=== PATIENT | female | born 1965 | race Caucasian/White ===

== ENCOUNTER 2017-12-05 12:03 | Inpatient (IN) | payer MEDICAID, OTHER ==
[2017-12-05 15:46] LABS: ADD MAN DIFF? NO
[2017-12-05 15:52] LABS: ABNORMAL IP MESSAGE 1; BASOPHILS % 0.2 % (0.0-2.0); EOSINOPHILS % 0.1 % (0.0-7.0); HEMATOCRIT 35.6 % (37.0-47.0); HEMOGLOBIN 10.6 g/dl (12.0-16.0); LYMPHOCYTES # 2.1 10^3/ul (0.8-2.9); LYMPHOCYTES % 10.5 % (15.0-51.0); MEAN CORPUSCULAR HEMOGLOBIN 20.1 pg (29.0-33.0); MEAN CORPUSCULAR HGB CONC 29.8 g/dl (32.0-37.0); MEAN CORPUSCULAR VOLUME 67.4 fl (82.0-101.0); MEAN PLATELET VOLUME 9.8 fl (7.4-10.4); MONOCYTE # 1.7 10^3/ul (0.3-0.9); MONOCYTES % 8.5 % (0.0-11.0); NEUTROPHILS % 80.1 % (39.0-77.0); PLATELET COUNT 325 10^3/UL (140-415); RED BLOOD COUNT 5.28 10^6/ul (4.20-5.40); RED CELL DISTRIBUTION WIDTH 15.3 % (11.5-14.5)
[2017-12-05 15:54] LABS: POSITIVE DIFF @See below
[2017-12-05 16:09] LABS: ADD UMIC YES; UR ASCORBIC ACID NEGATIVE (NEGATIVE); UR BACTERIA FEW /HPF (NONE SEEN); UR BILIRUBIN (Dip) NEGATIVE (NEGATIVE); UR BLOOD (Dip) NEGATIVE (NEGATIVE); UR CLARITY SLIGHTLY CLOUDY (CLEAR); UR COLOR AMBER (YELLOW); UR GLUCOSE (Dip) NEGATIVE (NEGATIVE); UR KETONES (Dip) NEGATIVE (NEGATIVE); UR LEUKOCYTE ESTERASE (Dip) TRACE Leu/ul (NEGATIVE); UR MUCUS MANY /HPF (NONE SEEN); UR NITRITE (Dip) NEGATIVE (NEGATIVE); UR RBC 3 /HPF (0-5); UR SPECIFIC GRAVITY (Dip) 1.025 (1.003-1.030); UR SQUAMOUS EPITHELIAL CELL FEW /HPF (FEW); UR TOTAL PROTEIN (Dip) 1+ mg/dl (NEGATIVE); UR UROBILINOGEN (Dip) NEGATIVE (NEGATIVE); UR WBC 8 /HPF (0-5)
[2017-12-05 16:11] LABS: INR 1.18; PROTIME 15.2 Sec (11.9-14.9); PT RATIO 1.2
[2017-12-05 16:12] LABS: PARTIAL THROMBOPLASTIN TIME 36.6 Sec (25.0-35.0)
[2017-12-05 16:13] LABS: ALANINE AMINOTRANSFERASE 20 IU/L (13-69); ALBUMIN 3.4 g/dl (3.3-4.9); ALKALINE PHOSPHATASE 78 IU/L (42-121); AMYLASE < 30 U/L (11-123); ANION GAP 15 (8-16); ASPARTATE AMINO TRANSFERASE 16 IU/L (15-46); BILIRUBIN,INDIRECT 0.8 mg/dl (0-1.1); BILIRUBIN,TOTAL 0.8 mg/dl (0.2-1.3); BLOOD UREA NITROGEN 20 mg/dl (7-20); CALCIUM 8.3 mg/dl (8.4-10.2); CARBON DIOXIDE 31 mmol/L (21-31); CHLORIDE 97 mmol/L (97-110); CREATININE 0.85 mg/dl (0.44-1.00); GLUCOSE 109 mg/dl (70-220); LIPASE < 10 U/L (23-300); POTASSIUM 3.7 mmol/L (3.5-5.1); SODIUM 139 mmol/L (135-144); TOTAL PROTEIN 6.8 g/dl (6.1-8.1)
[2017-12-05] MEDS: SOD CHLORIDE 0.9% 1,000 ML IV ×2 (16:17→21:05)
[2017-12-05] MEDS: morphine 4 MG/ML VIAL IV (16:17)
[2017-12-05] MEDS: ONDANSETRON 4 MG INJ IV ×2 (16:17→17:25)
[2017-12-05 16:24] LABS: TROPONIN-I < 0.012 ng/ml (0.000-0.120)
[2017-12-05] MEDS: HYDROmorphONE 1 MG/ML SYG IV (17:25)
[2017-12-05] MEDS: CEFTRIAXONE 1 GM/50 ML (PMX) 50 ML IVPB (17:26)
[2017-12-05] MEDS: metroNIDAZOLE 500 MG/NS (PMX) 100 ML IVPB (18:50)
[2017-12-05] MEDS: CIPROFLOXACIN 400MG/D5W 200 ML IVPB (18:50)
[2017-12-05] MEDS ORDERED: ONDANSETRON 4 MG INJ IV ×2 (19:00→20:00)
[2017-12-05] MEDS ORDERED: NACL 0.9% 3 ML SYG IV (20:00)
[2017-12-05] MEDS ORDERED: NA PHOSPHATE/BIPHOS 133 ML ENEMA PR (20:00)
[2017-12-05] MEDS ORDERED: NITROGLYCERIN (SL) 0.4 MG TAB SL (20:00)
[2017-12-05] MEDS ORDERED: MAGNESIUM HYDROXIDE 30ML CUP PO (20:00)
[2017-12-05] MEDS ORDERED: ALBUTEROL/IPRATROPIUM (NEB) 3 ML AMP HHN (20:00)
[2017-12-05] MEDS: morphine 2 MG INJ IV ×2 (20:02→23:18)
[2017-12-05] MEDS: ACETAMINOPHEN 325 MG TAB PO (20:09)
[2017-12-05 20:27] LABS: FREE T4 (FREE THYROXINE) 1.48 ng/dl (0.64-1.79)
[2017-12-05] MEDS: HEPARIN 5,000 UNIT/0.5 ML VIAL SC (21:46)
[2017-12-05] MEDS ORDERED: GLUCAGON 1 MG INJ IM (22:30)
[2017-12-05] MEDS ORDERED: DEXTROSE 50% 50 ML SYRINGE IV (22:30)
[2017-12-05] MEDS ORDERED: GLUCOSE GEL 15 GRAM TUBE PO ×2 (22:30)
[2017-12-05 23:19] LABS: LACTIC ACID 1.2 mmol/L (0.5-2.0)
[2017-12-05] MEDS: PIPER-TAZO 3.375 GM IV (PMX) 100 ML IVPB (23:21)
[2017-12-06 00:55] LABS: LACTIC ACID 0.9 mmol/L (0.5-2.0)
[2017-12-06] MEDS: INSULIN ASPART [NOVOLOG] 3 ML PEN SC ×6 (01:00→21:00)
[2017-12-06] MEDS: ACCU-CHEK XX (01:41)
[2017-12-06 04:08] LABS: ADD MAN DIFF? NO
[2017-12-06 04:11] LABS: ABNORMAL IP MESSAGE 1; BASOPHILS % 0.2 % (0.0-2.0); EOSINOPHILS # 0.1 10^3/ul (0.0-0.5); EOSINOPHILS % 0.3 % (0.0-7.0); HEMATOCRIT 33.8 % (37.0-47.0); HEMOGLOBIN 10.2 g/dl (12.0-16.0); LYMPHOCYTES # 1.2 10^3/ul (0.8-2.9); MEAN CORPUSCULAR HEMOGLOBIN 20.8 pg (29.0-33.0); MEAN CORPUSCULAR HGB CONC 30.2 g/dl (32.0-37.0); MEAN PLATELET VOLUME 9.8 fl (7.4-10.4); MONOCYTE # 1.7 10^3/ul (0.3-0.9); MONOCYTES % 8.6 % (0.0-11.0); NEUTROPHIL # 16.8 10^3/ul (1.6-7.5); NEUTROPHILS % 84.4 % (39.0-77.0); PLATELET COUNT 290 10^3/UL (140-415); RED CELL DISTRIBUTION WIDTH 15.6 % (11.5-14.5)
[2017-12-06 04:11] LABS: WHITE BLOOD COUNT 19.9 10^3/ul (4.8-10.8)
[2017-12-06 04:15] LABS: POSITIVE DIFF @See below
[2017-12-06 04:29] LABS: CHOLESTEROL 64 mg/dl (100-200)
[2017-12-06 04:29] LABS: CHOL/HDL RATIO 3.3 RATIO; HDL CHOLESTEROL 19 mg/dl (37-92); LDL CHOLESTEROL,CALCULATED 19 mg/dl; TRIGLYCERIDES 129 mg/dl (0-149)
[2017-12-06 04:35] LABS: ANION GAP 11 (8-16); BLOOD UREA NITROGEN 22 mg/dl (7-20); CALCIUM 7.4 mg/dl (8.4-10.2); CARBON DIOXIDE 29 mmol/L (21-31); CHLORIDE 102 mmol/L (97-110); CREATININE 0.88 mg/dl (0.44-1.00); GLUCOSE 122 mg/dl (70-220); MAGNESIUM 1.7 mg/dl (1.7-2.5); PHOSPHORUS 4.8 mg/dl (2.5-4.9); POTASSIUM 3.7 mmol/L (3.5-5.1); SODIUM 138 mmol/L (135-144)
[2017-12-06 04:36] LABS: HEMOGLOBIN A1C 7.9 % (0-5.9)
[2017-12-06] MEDS: PANTOPRAZOLE 40 MG INJ IV (05:20)
[2017-12-06] MEDS: PIPER-TAZO 3.375 GM IV (PMX) 100 ML IVPB ×3 (05:20→18:29)
[2017-12-06] MEDS: morphine 2 MG INJ IV (07:23)
[2017-12-06 07:59] LABS: IRON 24 ug/dl (35-150)
[2017-12-06] MEDS: ACETAMINOPHEN 325 MG TAB PO ×2 (08:00→17:54)
[2017-12-06 08:03] LABS: LACTIC ACID 0.8 mmol/L (0.5-2.0)
[2017-12-06] MEDS: SOD CHLORIDE 0.9% 1,000 ML IV ×2 (08:04→18:30)
[2017-12-06 08:08] LABS: % IRON SATURATION 10 % SAT (22-52); TOTAL IRON BINDING CAPACITY 234 ug/dl (241-421)
[2017-12-06] MEDS: HEPARIN 5,000 UNIT/0.5 ML VIAL SC ×2 (09:12→21:08)
[2017-12-06] MEDS: HYDROCODONE/APAP (5/325) TAB PO (12:34)
[2017-12-06 12:49] LABS: LACTIC ACID 1.2 mmol/L (0.5-2.0)
[2017-12-06] MEDS: SOD FERRIC GLUC COMPLX 125 MG in SOD CHLORIDE 0.9% 100 ML IVPB (17:13)
[2017-12-06 17:15] LABS: LACTIC ACID 0.7 mmol/L (0.5-2.0)
[2017-12-06] MEDS: SOD CHLORIDE 0.9% 500 ML IV (19:06)
[2017-12-06] MEDS: DILTIAZEM 30 MG TAB PO (21:04)
[2017-12-06] MEDS: ATORVASTATIN 40 MG TAB PO (21:04)
[2017-12-06] MEDS: METOPROLOL (XL) 100 MG TAB PO (21:04)
[2017-12-06] MEDS: INSULIN GLARGINE [LANTus] (100 UNITS/ML) SYG SC (21:06)
[2017-12-07] MEDS: SOD CHLORIDE 0.9% 500 ML IV (00:10)
[2017-12-07] MEDS: INSULIN ASPART [NOVOLOG] 3 ML PEN SC ×6 (01:00→21:00)
[2017-12-07] MEDS: ACCU-CHEK XX (01:33)
[2017-12-07] MEDS: PIPER-TAZO 3.375 GM IV (PMX) 100 ML IVPB ×4 (01:37→17:19)
[2017-12-07] MEDS: ACETAMINOPHEN 1000MG/100ML IV 100 ML IVPB (03:37)
[2017-12-07] MEDS: morphine 2 MG INJ IV ×3 (03:57→22:20)
[2017-12-07] MEDS: SOD CHLORIDE 0.9% 1,000 ML IV ×2 (04:00→11:33)
[2017-12-07 06:39] LABS: ADD MAN DIFF? NO
[2017-12-07 06:42] LABS: WHITE BLOOD COUNT 18.6 10^3/ul (4.8-10.8)
[2017-12-07 06:42] LABS: BASOPHILS % 0.2 % (0.0-2.0); EOSINOPHILS % 0.1 % (0.0-7.0); HEMATOCRIT 32.7 % (37.0-47.0); HEMOGLOBIN 9.7 g/dl (12.0-16.0); LYMPHOCYTES # 1.4 10^3/ul (0.8-2.9); LYMPHOCYTES % 7.3 % (15.0-51.0); MEAN CORPUSCULAR HEMOGLOBIN 20.6 pg (29.0-33.0); MEAN CORPUSCULAR HGB CONC 29.7 g/dl (32.0-37.0); MEAN CORPUSCULAR VOLUME 69.3 fl (82.0-101.0); MONOCYTE # 1.3 10^3/ul (0.3-0.9); MONOCYTES % 7.2 % (0.0-11.0); NEUTROPHIL # 15.7 10^3/ul (1.6-7.5); NEUTROPHILS % 84.6 % (39.0-77.0); PLATELET COUNT 313 10^3/UL (140-415); RED BLOOD COUNT 4.72 10^6/ul (4.20-5.40); RED CELL DISTRIBUTION WIDTH 15.8 % (11.5-14.5)
[2017-12-07] MEDS: PANTOPRAZOLE 40 MG INJ IV (06:51)
[2017-12-07 07:23] LABS: ANION GAP 15 (8-16); BLOOD UREA NITROGEN 23 mg/dl (7-20); CALCIUM 7.7 mg/dl (8.4-10.2); CARBON DIOXIDE 27 mmol/L (21-31); CHLORIDE 104 mmol/L (97-110); CREATININE 0.92 mg/dl (0.44-1.00); GLUCOSE 130 mg/dl (70-220); POTASSIUM 3.5 mmol/L (3.5-5.1); SODIUM 142 mmol/L (135-144)
[2017-12-07] MEDS: BARIUM SULF 2% 450 ML BTL (BERRY SMOOTHIE) PO (08:08)
[2017-12-07] MEDS: SOD CHLORIDE 0.9% 100 ML (10:47)
[2017-12-07] MEDS: ASPIRIN (EC) 81 MG TAB PO (11:31)
[2017-12-07] MEDS: METOPROLOL (XL) 100 MG TAB PO ×2 (11:31→21:07)
[2017-12-07] MEDS: HYDROCHLOROTHIAZIDE 25 MG TAB PO (11:32)
[2017-12-07] MEDS: DILTIAZEM 30 MG TAB PO ×2 (11:33→21:07)
[2017-12-07] MEDS: IOHEXOL 300MG/ML 150 ML BTL (11:33)
[2017-12-07] MEDS: HEPARIN 5,000 UNIT/0.5 ML VIAL SC ×2 (11:36→21:10)
[2017-12-07] MEDS ORDERED: IBUPROFEN 600 MG TAB GTB (12:30)
[2017-12-07 14:10] LABS: OCCULT BLOOD STOOL NEGATIVE (NEGATIVE)
[2017-12-07] MEDS: SOD FERRIC GLUC COMPLX 125 MG in SOD CHLORIDE 0.9% 100 ML IVPB (17:18)
[2017-12-07] MEDS: LEVOFLOXACIN 500MG/D5W (PMX) 100 ML IVPB (21:05)
[2017-12-07] MEDS: ATORVASTATIN 40 MG TAB PO (21:07)
[2017-12-07] MEDS: INSULIN GLARGINE [LANTus] (100 UNITS/ML) SYG SC (21:14)
[2017-12-07] MEDS: ACETAMINOPHEN 325 MG TAB PO (21:19)
[2017-12-07] MEDS: metroNIDAZOLE 500 MG/NS (PMX) 100 ML IVPB (22:15)
[2017-12-08] MEDS: PIPER-TAZO 3.375 GM IV (PMX) 100 ML IVPB ×4 (00:18→17:05)
[2017-12-08] MEDS: INSULIN ASPART [NOVOLOG] 3 ML PEN SC ×6 (01:00→21:00)
[2017-12-08] MEDS: ACCU-CHEK XX (01:24)
[2017-12-08] MEDS: HYDROCODONE/APAP (5/325) TAB PO ×2 (01:28→20:27)
[2017-12-08] MEDS: SOD CHLORIDE 0.9% 1,000 ML IV ×2 (04:08→08:54)
[2017-12-08] MEDS: PANTOPRAZOLE 40 MG INJ IV (05:15)
[2017-12-08] MEDS: metroNIDAZOLE 500 MG/NS (PMX) 100 ML IVPB ×3 (05:52→21:46)
[2017-12-08] MEDS: morphine 2 MG INJ IV ×4 (05:56→22:42)
[2017-12-08 06:45] LABS: ADD MAN DIFF? NO
[2017-12-08 06:58] LABS: BASOPHILS % 0.2 % (0.0-2.0); EOSINOPHILS # 0.1 10^3/ul (0.0-0.5); EOSINOPHILS % 0.8 % (0.0-7.0); HEMATOCRIT 34.7 % (37.0-47.0); HEMOGLOBIN 10.1 g/dl (12.0-16.0); LYMPHOCYTES # 1.2 10^3/ul (0.8-2.9); LYMPHOCYTES % 6.8 % (15.0-51.0); MEAN CORPUSCULAR HEMOGLOBIN 20.3 pg (29.0-33.0); MEAN CORPUSCULAR HGB CONC 29.1 g/dl (32.0-37.0); MEAN CORPUSCULAR VOLUME 69.8 fl (82.0-101.0); MEAN PLATELET VOLUME 10.2 fl (7.4-10.4); MONOCYTE # 1.4 10^3/ul (0.3-0.9); MONOCYTES % 7.9 % (0.0-11.0); NEUTROPHIL # 14.8 10^3/ul (1.6-7.5); NEUTROPHILS % 83.7 % (39.0-77.0); PLATELET COUNT 365 10^3/UL (140-415); RED BLOOD COUNT 4.97 10^6/ul (4.20-5.40); RED CELL DISTRIBUTION WIDTH 15.9 % (11.5-14.5)
[2017-12-08 06:58] LABS: WHITE BLOOD COUNT 17.6 10^3/ul (4.8-10.8)
[2017-12-08 07:26] LABS: ANION GAP 13 (8-16); BLOOD UREA NITROGEN 19 mg/dl (7-20); CARBON DIOXIDE 30 mmol/L (21-31); CHLORIDE 103 mmol/L (97-110); CREATININE 0.74 mg/dl (0.44-1.00); GLUCOSE 80 mg/dl (70-220); POTASSIUM 3.5 mmol/L (3.5-5.1); SODIUM 142 mmol/L (135-144)
[2017-12-08] MEDS: DILTIAZEM 30 MG TAB PO ×2 (08:48→20:26)
[2017-12-08] MEDS: HEPARIN 5,000 UNIT/0.5 ML VIAL SC ×2 (08:49→21:00)
[2017-12-08] MEDS: HYDROCHLOROTHIAZIDE 25 MG TAB PO (08:49)
[2017-12-08] MEDS: ASPIRIN (EC) 81 MG TAB PO (08:49)
[2017-12-08] MEDS: METOPROLOL (XL) 100 MG TAB PO ×2 (08:49→20:26)
[2017-12-08] MEDS: DEXTROSE 5%-0.45% NACL 1,000 ML IV (12:36)
[2017-12-08] MEDS: DEXTROSE 50% 50 ML SYRINGE IV (13:18)
[2017-12-08] MEDS: SOD FERRIC GLUC COMPLX 125 MG in SOD CHLORIDE 0.9% 100 ML IVPB (17:04)
[2017-12-08] MEDS: LEVOFLOXACIN 500MG/D5W (PMX) 100 ML IVPB (20:25)
[2017-12-08] MEDS: ATORVASTATIN 40 MG TAB PO (20:26)
[2017-12-08] MEDS: INSULIN GLARGINE [LANTus] (100 UNITS/ML) SYG SC (20:47)
[2017-12-09] MEDS: PIPER-TAZO 3.375 GM IV (PMX) 100 ML IVPB ×3 (00:27→12:29)
[2017-12-09] MEDS: INSULIN ASPART [NOVOLOG] 3 ML PEN SC ×6 (00:27→21:00)
[2017-12-09] MEDS: DEXTROSE 5%-0.45% NACL 1,000 ML IV ×3 (01:20→14:40)
[2017-12-09] MEDS: ACCU-CHEK XX (01:37)
[2017-12-09] MEDS: PANTOPRAZOLE 40 MG INJ IV (05:10)
[2017-12-09] MEDS: metroNIDAZOLE 500 MG/NS (PMX) 100 ML IVPB (05:51)
[2017-12-09] MEDS: morphine 2 MG INJ IV ×2 (05:51→11:14)
[2017-12-09 07:33] LABS: ADD MAN DIFF? NO
[2017-12-09 07:40] LABS: WHITE BLOOD COUNT 17.8 10^3/ul (4.8-10.8)
[2017-12-09 07:40] LABS: BASOPHILS % 0.2 % (0.0-2.0); EOSINOPHILS # 0.1 10^3/ul (0.0-0.5); EOSINOPHILS % 0.3 % (0.0-7.0); HEMOGLOBIN 9.6 g/dl (12.0-16.0); LYMPHOCYTES # 1.2 10^3/ul (0.8-2.9); LYMPHOCYTES % 6.5 % (15.0-51.0); MEAN CORPUSCULAR HEMOGLOBIN 20.5 pg (29.0-33.0); MEAN CORPUSCULAR HGB CONC 29.1 g/dl (32.0-37.0); MEAN CORPUSCULAR VOLUME 70.5 fl (82.0-101.0); MEAN PLATELET VOLUME 9.9 fl (7.4-10.4); MONOCYTE # 1.2 10^3/ul (0.3-0.9); MONOCYTES % 6.8 % (0.0-11.0); NEUTROPHIL # 15.2 10^3/ul (1.6-7.5); NEUTROPHILS % 85.6 % (39.0-77.0); PLATELET COUNT 393 10^3/UL (140-415); RED BLOOD COUNT 4.68 10^6/ul (4.20-5.40); RED CELL DISTRIBUTION WIDTH 15.8 % (11.5-14.5)
[2017-12-09 07:58] LABS: ANION GAP 10 (8-16); BLOOD UREA NITROGEN 14 mg/dl (7-20); CARBON DIOXIDE 32 mmol/L (21-31); CHLORIDE 101 mmol/L (97-110); CREATININE 0.69 mg/dl (0.44-1.00); GLUCOSE 108 mg/dl (70-220); POTASSIUM 3.4 mmol/L (3.5-5.1); SODIUM 140 mmol/L (135-144)
[2017-12-09 08:00] LABS: PHOSPHORUS 3.4 mg/dl (2.5-4.9)
[2017-12-09] MEDS: HEPARIN 5,000 UNIT/0.5 ML VIAL SC ×2 (08:07→21:04)
[2017-12-09] MEDS: ASPIRIN (EC) 81 MG TAB PO ×2 (08:07→09:37)
[2017-12-09] MEDS: METOPROLOL (XL) 100 MG TAB PO ×2 (09:37→20:48)
[2017-12-09] MEDS: HYDROCHLOROTHIAZIDE 25 MG TAB PO (09:38)
[2017-12-09] MEDS: DILTIAZEM 30 MG TAB PO ×2 (09:38→20:48)
[2017-12-09] MEDS ORDERED: VANCOMYCIN IV PER PHARMACY XX (14:30)
[2017-12-09] MEDS: VANCOMYCIN 1.5 GM in SOD CHLORIDE 0.9% 250 ML IVPB ×2 (16:10→22:32)
[2017-12-09] MEDS: IOHEXOL 300MG/ML 30 ML BTL (16:49)
[2017-12-09] MEDS: ATORVASTATIN 40 MG TAB PO (20:48)
[2017-12-09] MEDS: LEVOFLOXACIN 500MG/D5W (PMX) 100 ML IVPB (20:49)
[2017-12-09] MEDS: HYDROCODONE/APAP (5/325) TAB PO (20:49)
[2017-12-09] MEDS: INSULIN GLARGINE [LANTus] (100 UNITS/ML) SYG SC (21:05)
[2017-12-10] MEDS: INSULIN ASPART [NOVOLOG] 3 ML PEN SC ×6 (01:00→20:36)
[2017-12-10] MEDS: ACCU-CHEK XX (02:06)
[2017-12-10] MEDS: PIPER-TAZO 3.375 GM IV (PMX) 100 ML IVPB ×6 (02:06→20:30)
[2017-12-10] MEDS: DEXTROSE 5%-0.45% NACL 1,000 ML IV ×2 (04:00→17:20)
[2017-12-10] MEDS: morphine 2 MG INJ IV (06:10)
[2017-12-10] MEDS: PANTOPRAZOLE 40 MG INJ IV (06:10)
[2017-12-10] MEDS: DILTIAZEM 30 MG TAB PO ×2 (08:42→20:31)
[2017-12-10] MEDS: METOPROLOL (XL) 100 MG TAB PO ×2 (08:43→20:30)
[2017-12-10] MEDS: HYDROCHLOROTHIAZIDE 25 MG TAB PO (08:44)
[2017-12-10] MEDS: ASPIRIN (EC) 81 MG TAB PO (08:44)
[2017-12-10] MEDS: HEPARIN 5,000 UNIT/0.5 ML VIAL SC ×2 (08:49→20:43)
[2017-12-10] MEDS ORDERED: ENOXAPARIN 40 MG/0.4 ML SYG SC (09:00)
[2017-12-10] MEDS: HYDROCODONE/APAP (5/325) TAB PO ×2 (09:30→20:48)
[2017-12-10] MEDS: VANCOMYCIN 2 GM in SOD CHLORIDE 0.9% 500 ML IVPB (11:38)
[2017-12-10 12:16] LABS: ADD MAN DIFF? NO
[2017-12-10 12:21] LABS: WHITE BLOOD COUNT 18.6 10^3/ul (4.8-10.8)
[2017-12-10 12:21] LABS: BASOPHILS % 0.2 % (0.0-2.0); EOSINOPHILS # 0.1 10^3/ul (0.0-0.5); EOSINOPHILS % 0.5 % (0.0-7.0); HEMATOCRIT 30.4 % (37.0-47.0); HEMOGLOBIN 9.1 g/dl (12.0-16.0); LYMPHOCYTES # 1.4 10^3/ul (0.8-2.9); LYMPHOCYTES % 7.5 % (15.0-51.0); MEAN CORPUSCULAR HEMOGLOBIN 20.3 pg (29.0-33.0); MEAN CORPUSCULAR HGB CONC 29.9 g/dl (32.0-37.0); MEAN CORPUSCULAR VOLUME 67.9 fl (82.0-101.0); MEAN PLATELET VOLUME 9.6 fl (7.4-10.4); MONOCYTE # 1.1 10^3/ul (0.3-0.9); NEUTROPHIL # 15.7 10^3/ul (1.6-7.5); NEUTROPHILS % 84.2 % (39.0-77.0); NUCLEATED RED BLOOD CELLS% 0.1 /100WBC (0.0-0.0); PLATELET COUNT 404 10^3/UL (140-415); RED BLOOD COUNT 4.48 10^6/ul (4.20-5.40); RED CELL DISTRIBUTION WIDTH 15.7 % (11.5-14.5)
[2017-12-10 12:46] LABS: ANION GAP 8 (8-16); BLOOD UREA NITROGEN 10 mg/dl (7-20); CALCIUM 7.9 mg/dl (8.4-10.2); CARBON DIOXIDE 35 mmol/L (21-31); CHLORIDE 99 mmol/L (97-110); GLUCOSE 100 mg/dl (70-220); SODIUM 139 mmol/L (135-144)
[2017-12-10 12:59] LABS: POTASSIUM 2.9 mmol/L (3.5-5.1)
[2017-12-10 13:24] LABS: ERYTHROCYTE SEDIMENTATION RATE 84 mm/Hr (0-30)
[2017-12-10 13:31] LABS: MAGNESIUM 1.9 mg/dl (1.7-2.5)
[2017-12-10 13:47] LABS: C-REACTIVE PROTEIN 21.8 mg/dl (0.0-0.9)
[2017-12-10] MEDS: FLUCONAZOLE 100 MG/50 ML (PMX) 50 ML IVPB (16:58)
[2017-12-10] MEDS: POTASSIUM CHLORIDE 100 ML IVPB ×2 (18:09→20:31)
[2017-12-10] MEDS: ATORVASTATIN 40 MG TAB PO (20:30)
[2017-12-10] MEDS: INSULIN GLARGINE [LANTus] (100 UNITS/ML) SYG SC (20:41)
[2017-12-11] MEDS: POTASSIUM CHLORIDE 100 ML IVPB (00:17)
[2017-12-11] MEDS: VANCOMYCIN 2 GM in SOD CHLORIDE 0.9% 500 ML IVPB ×3 (00:17→23:36)
[2017-12-11] MEDS: INSULIN ASPART [NOVOLOG] 3 ML PEN SC ×6 (01:00→22:12)
[2017-12-11] MEDS: ACCU-CHEK XX (02:00)
[2017-12-11] MEDS: DEXTROSE 5%-0.45% NACL 1,000 ML IV ×2 (05:29→23:36)
[2017-12-11] MEDS: PIPER-TAZO 3.375 GM IV (PMX) 100 ML IVPB ×4 (05:30→22:02)
[2017-12-11] MEDS: PANTOPRAZOLE 40 MG INJ IV (05:34)
[2017-12-11 07:07] LABS: ADD MAN DIFF? NO
[2017-12-11 07:13] LABS: BASOPHILS % 0.2 % (0.0-2.0); EOSINOPHILS # 0.1 10^3/ul (0.0-0.5); EOSINOPHILS % 0.6 % (0.0-7.0); HEMATOCRIT 32.8 % (37.0-47.0); HEMOGLOBIN 9.7 g/dl (12.0-16.0); LYMPHOCYTES # 1.7 10^3/ul (0.8-2.9); MEAN CORPUSCULAR HEMOGLOBIN 20.5 pg (29.0-33.0); MEAN CORPUSCULAR HGB CONC 29.6 g/dl (32.0-37.0); MEAN CORPUSCULAR VOLUME 69.3 fl (82.0-101.0); MEAN PLATELET VOLUME 9.8 fl (7.4-10.4); MONOCYTE # 1.2 10^3/ul (0.3-0.9); MONOCYTES % 6.4 % (0.0-11.0); NEUTROPHIL # 14.9 10^3/ul (1.6-7.5); NEUTROPHILS % 81.2 % (39.0-77.0); NUCLEATED RED BLOOD CELLS% 0.1 /100WBC (0.0-0.0); PLATELET COUNT 454 10^3/UL (140-415); RED BLOOD COUNT 4.73 10^6/ul (4.20-5.40); RED CELL DISTRIBUTION WIDTH 15.5 % (11.5-14.5)
[2017-12-11 07:13] LABS: WHITE BLOOD COUNT 18.4 10^3/ul (4.8-10.8)
[2017-12-11 07:31] LABS: ANION GAP 19 (8-16)
[2017-12-11 07:33] LABS: BLOOD UREA NITROGEN 10 mg/dl (7-20); CALCIUM 7.2 mg/dl (8.4-10.2); CARBON DIOXIDE 29 mmol/L (21-31); CHLORIDE 96 mmol/L (97-110); CREATININE 0.57 mg/dl (0.44-1.00); GLUCOSE 90 mg/dl (70-220); POTASSIUM 3.5 mmol/L (3.5-5.1); SODIUM 140 mmol/L (135-144)
[2017-12-11] MEDS: DILTIAZEM 30 MG TAB PO ×2 (08:57→22:05)
[2017-12-11] MEDS: ASPIRIN (EC) 81 MG TAB PO (08:57)
[2017-12-11] MEDS: METOPROLOL (XL) 100 MG TAB PO ×2 (08:58→22:05)
[2017-12-11] MEDS: HYDROCHLOROTHIAZIDE 25 MG TAB PO (08:58)
[2017-12-11] MEDS: HEPARIN 5,000 UNIT/0.5 ML VIAL SC ×2 (09:03→22:11)
[2017-12-11 10:55] LABS: VANCOMYCIN,TROUGH 14.8 ug/ml (10.0-20.0)
[2017-12-11] MEDS: LIDOCAINE 1% (MPF) 5 ML VIAL SC (11:45)
[2017-12-11] MEDS: FLUCONAZOLE 100 MG/50 ML (PMX) 50 ML IVPB (17:17)
[2017-12-11] MEDS: HYDROCODONE/APAP (5/325) TAB PO (17:50)
[2017-12-11] MEDS: ATORVASTATIN 40 MG TAB PO (22:04)
[2017-12-11] MEDS: SACCHAROMYCES BOULARDII 250 MG CAP PO (22:04)
[2017-12-11] MEDS: INSULIN GLARGINE [LANTus] (100 UNITS/ML) SYG SC (22:11)
[2017-12-12] MEDS: ACCU-CHEK XX ×2 (02:00→20:36)
[2017-12-12] MEDS: PIPER-TAZO 3.375 GM IV (PMX) 100 ML IVPB ×4 (04:44→20:23)
[2017-12-12] MEDS: PANTOPRAZOLE 40 MG INJ IV (05:02)
[2017-12-12] MEDS: HYDROCODONE/APAP (5/325) TAB PO ×2 (05:02→20:25)
[2017-12-12 07:13] LABS: ADD MAN DIFF? NO
[2017-12-12 07:18] LABS: WHITE BLOOD COUNT 18.2 10^3/ul (4.8-10.8)
[2017-12-12 07:19] LABS: BASOPHIL # 0.1 10^3/ul (0.0-0.1); BASOPHILS % 0.3 % (0.0-2.0); EOSINOPHILS # 0.2 10^3/ul (0.0-0.5); EOSINOPHILS % 0.9 % (0.0-7.0); HEMATOCRIT 31.7 % (37.0-47.0); HEMOGLOBIN 9.4 g/dl (12.0-16.0); LYMPHOCYTES # 1.8 10^3/ul (0.8-2.9); LYMPHOCYTES % 9.6 % (15.0-51.0); MEAN CORPUSCULAR HEMOGLOBIN 20.4 pg (29.0-33.0); MEAN CORPUSCULAR HGB CONC 29.7 g/dl (32.0-37.0); MEAN CORPUSCULAR VOLUME 68.9 fl (82.0-101.0); MEAN PLATELET VOLUME 9.9 fl (7.4-10.4); MONOCYTE # 1.4 10^3/ul (0.3-0.9); MONOCYTES % 7.9 % (0.0-11.0); NEUTROPHILS % 77.1 % (39.0-77.0); NUCLEATED RED BLOOD CELLS% 0.2 /100WBC (0.0-0.0); PLATELET COUNT 439 10^3/UL (140-415); RED CELL DISTRIBUTION WIDTH 15.6 % (11.5-14.5)
[2017-12-12] MEDS: INSULIN ASPART [NOVOLOG] 3 ML PEN SC ×4 (08:00→20:36)
[2017-12-12] MEDS: DEXTROSE 5%-0.45% NACL 1,000 ML IV (08:07)
[2017-12-12 08:10] LABS: ANION GAP 10 (8-16); BLOOD UREA NITROGEN 7 mg/dl (7-20); CALCIUM 7.6 mg/dl (8.4-10.2); CARBON DIOXIDE 35 mmol/L (21-31); CHLORIDE 97 mmol/L (97-110); CREATININE 0.75 mg/dl (0.44-1.00); GLUCOSE 134 mg/dl (70-220); SODIUM 139 mmol/L (135-144)
[2017-12-12 08:15] LABS: POTASSIUM 2.7 mmol/L (3.5-5.1)
[2017-12-12] MEDS: HYDROCHLOROTHIAZIDE 25 MG TAB PO (08:30)
[2017-12-12] MEDS: METOPROLOL (XL) 100 MG TAB PO ×2 (08:31→20:31)
[2017-12-12] MEDS: SACCHAROMYCES BOULARDII 250 MG CAP PO ×2 (08:31→20:25)
[2017-12-12] MEDS: DILTIAZEM 30 MG TAB PO ×2 (08:31→20:32)
[2017-12-12] MEDS: ASPIRIN (EC) 81 MG TAB PO (08:31)
[2017-12-12] MEDS: HEPARIN 5,000 UNIT/0.5 ML VIAL SC ×2 (08:33→20:39)
[2017-12-12] MEDS: POTASSIUM CHLORIDE 50 ML IVPB ×3 (09:30→17:37)
[2017-12-12 09:56] LABS: MAGNESIUM 1.8 mg/dl (1.7-2.5)
[2017-12-12] MEDS: VANCOMYCIN 2 GM in SOD CHLORIDE 0.9% 500 ML IVPB (11:00)
[2017-12-12] MEDS: FLUCONAZOLE 100 MG/50 ML (PMX) 50 ML IVPB (17:26)
[2017-12-12] MEDS: ATORVASTATIN 40 MG TAB PO (20:31)
[2017-12-12] MEDS: INSULIN GLARGINE [LANTus] (100 UNITS/ML) SYG SC (20:38)
[2017-12-13] MEDS: PIPER-TAZO 3.375 GM IV (PMX) 100 ML IVPB ×4 (03:06→21:00)
[2017-12-13] MEDS: HYDROCODONE/APAP (5/325) TAB PO ×2 (03:07→21:04)
[2017-12-13] MEDS: PANTOPRAZOLE 40 MG INJ IV (06:16)
[2017-12-13 06:55] LABS: ADD MAN DIFF? NO
[2017-12-13 07:04] LABS: WHITE BLOOD COUNT 20.2 10^3/ul (4.8-10.8)
[2017-12-13 07:04] LABS: BASOPHIL # 0.1 10^3/ul (0.0-0.1); BASOPHILS % 0.3 % (0.0-2.0); EOSINOPHILS # 0.2 10^3/ul (0.0-0.5); HEMATOCRIT 31.3 % (37.0-47.0); HEMOGLOBIN 9.3 g/dl (12.0-16.0); LYMPHOCYTES # 2.4 10^3/ul (0.8-2.9); LYMPHOCYTES % 11.8 % (15.0-51.0); MEAN CORPUSCULAR HEMOGLOBIN 20.7 pg (29.0-33.0); MEAN CORPUSCULAR HGB CONC 29.7 g/dl (32.0-37.0); MEAN CORPUSCULAR VOLUME 69.6 fl (82.0-101.0); MEAN PLATELET VOLUME 9.9 fl (7.4-10.4); MONOCYTE # 1.2 10^3/ul (0.3-0.9); MONOCYTES % 6.1 % (0.0-11.0); NEUTROPHIL # 15.6 10^3/ul (1.6-7.5); NEUTROPHILS % 77.1 % (39.0-77.0); NUCLEATED RED BLOOD CELLS # 0.1 10^3/ul (0.0-0.0); NUCLEATED RED BLOOD CELLS% 0.2 /100WBC (0.0-0.0); PLATELET COUNT 460 10^3/UL (140-415); RED CELL DISTRIBUTION WIDTH 15.7 % (11.5-14.5)
[2017-12-13 07:21] LABS: ANION GAP 7 (8-16); BLOOD UREA NITROGEN 8 mg/dl (7-20); CALCIUM 7.5 mg/dl (8.4-10.2); CARBON DIOXIDE 38 mmol/L (21-31); CHLORIDE 99 mmol/L (97-110); CREATININE 0.86 mg/dl (0.44-1.00); GLUCOSE 103 mg/dl (70-220); POTASSIUM 3.1 mmol/L (3.5-5.1); SODIUM 141 mmol/L (135-144)
[2017-12-13] MEDS: INSULIN ASPART [NOVOLOG] 3 ML PEN SC ×4 (08:00→21:15)
[2017-12-13] MEDS: SACCHAROMYCES BOULARDII 250 MG CAP PO ×2 (08:33→21:05)
[2017-12-13] MEDS: METOPROLOL (XL) 100 MG TAB PO ×2 (08:34→21:04)
[2017-12-13] MEDS: ASPIRIN (EC) 81 MG TAB PO (08:34)
[2017-12-13] MEDS: HYDROCHLOROTHIAZIDE 25 MG TAB PO (08:34)
[2017-12-13] MEDS: DILTIAZEM 30 MG TAB PO ×2 (08:35→21:05)
[2017-12-13] MEDS: HEPARIN 5,000 UNIT/0.5 ML VIAL SC ×2 (08:38→21:16)
[2017-12-13] MEDS: POTASSIUM CHLORIDE 100 ML IVPB ×2 (10:13→15:22)
[2017-12-13] MEDS: DIPHENOXYLATE/ATROPINE TAB PO ×2 (11:00→15:36)
[2017-12-13 12:27] LABS: ADD UMIC NO; UR ASCORBIC ACID NEGATIVE (NEGATIVE); UR BILIRUBIN (Dip) NEGATIVE (NEGATIVE); UR BLOOD (Dip) NEGATIVE (NEGATIVE); UR CLARITY CLEAR (CLEAR); UR COLOR YELLOW (YELLOW); UR GLUCOSE (Dip) NEGATIVE (NEGATIVE); UR KETONES (Dip) NEGATIVE (NEGATIVE); UR LEUKOCYTE ESTERASE (Dip) NEGATIVE Leu/ul (NEGATIVE); UR NITRITE (Dip) NEGATIVE (NEGATIVE); UR TOTAL PROTEIN (Dip) NEGATIVE (NEGATIVE); UR UROBILINOGEN (Dip) NEGATIVE (NEGATIVE)
[2017-12-13 13:42] LABS: LACTIC ACID 0.8 mmol/L (0.5-2.0)
[2017-12-13] MEDS: FLUCONAZOLE 100 MG/50 ML (PMX) 50 ML IVPB (16:24)
[2017-12-13] MEDS: ATORVASTATIN 40 MG TAB PO (21:04)
[2017-12-13] MEDS: INSULIN GLARGINE [LANTus] (100 UNITS/ML) SYG SC (21:16)
[2017-12-14] MEDS: ACCU-CHEK XX (02:00)
[2017-12-14] MEDS: PIPER-TAZO 3.375 GM IV (PMX) 100 ML IVPB ×4 (02:48→20:53)
[2017-12-14] MEDS: PANTOPRAZOLE 40 MG INJ IV (05:48)
[2017-12-14 06:03] LABS: ADD MAN DIFF? NO
[2017-12-14 06:11] LABS: WHITE BLOOD COUNT 17.2 10^3/ul (4.8-10.8)
[2017-12-14 06:11] LABS: ABNORMAL IP MESSAGE 1; BASOPHIL # 0.1 10^3/ul (0.0-0.1); BASOPHILS % 0.3 % (0.0-2.0); EOSINOPHILS # 0.2 10^3/ul (0.0-0.5); EOSINOPHILS % 0.9 % (0.0-7.0); HEMATOCRIT 31.1 % (37.0-47.0); LYMPHOCYTES # 2.1 10^3/ul (0.8-2.9); LYMPHOCYTES % 12.1 % (15.0-51.0); MEAN CORPUSCULAR HEMOGLOBIN 20.3 pg (29.0-33.0); MEAN CORPUSCULAR HGB CONC 28.9 g/dl (32.0-37.0); MEAN PLATELET VOLUME 9.7 fl (7.4-10.4); MONOCYTE # 1.1 10^3/ul (0.3-0.9); MONOCYTES % 6.6 % (0.0-11.0); NEUTROPHIL # 13.1 10^3/ul (1.6-7.5); NEUTROPHILS % 76.2 % (39.0-77.0); NUCLEATED RED BLOOD CELLS% 0.1 /100WBC (0.0-0.0); PLATELET COUNT 411 10^3/UL (140-415); RED BLOOD COUNT 4.44 10^6/ul (4.20-5.40); RED CELL DISTRIBUTION WIDTH 15.6 % (11.5-14.5)
[2017-12-14 06:25] LABS: POSITIVE DIFF @See below
[2017-12-14 06:43] LABS: BLOOD UREA NITROGEN 6 mg/dl (7-20); CALCIUM 7.7 mg/dl (8.4-10.2); CHLORIDE 99 mmol/L (97-110); CREATININE 0.86 mg/dl (0.44-1.00); GLUCOSE 84 mg/dl (70-220); MAGNESIUM 1.9 mg/dl (1.7-2.5); SODIUM 141 mmol/L (135-144)
[2017-12-14 06:49] LABS: ANION GAP 6 (8-16)
[2017-12-14 07:01] LABS: CARBON DIOXIDE 39 mmol/L (21-31)
[2017-12-14 07:02] LABS: POTASSIUM 2.9 mmol/L (3.5-5.1)
[2017-12-14] MEDS: POTASSIUM CHLORIDE (SR) 20 MEQ TAB PO ×2 (07:35→10:23)
[2017-12-14] MEDS: INSULIN ASPART [NOVOLOG] 3 ML PEN SC ×4 (08:00→20:58)
[2017-12-14] MEDS: SOD CHLORIDE 0.9% 100 ML (09:11)
[2017-12-14] MEDS: IOHEXOL 300MG/ML 150 ML BTL (09:12)
[2017-12-14] MEDS: IOHEXOL 300MG/ML 30 ML BTL (09:13)
[2017-12-14] MEDS: MAGNESIUM SULFATE 1 GM/D5W 100 ML IVPB (09:48)
[2017-12-14] MEDS: SACCHAROMYCES BOULARDII 250 MG CAP PO ×2 (09:49→20:54)
[2017-12-14] MEDS: HYDROCHLOROTHIAZIDE 25 MG TAB PO (09:50)
[2017-12-14] MEDS: DILTIAZEM 30 MG TAB PO ×2 (09:50→20:55)
[2017-12-14] MEDS: METOPROLOL (XL) 100 MG TAB PO ×2 (09:50→20:55)
[2017-12-14] MEDS: ASPIRIN (EC) 81 MG TAB PO (09:54)
[2017-12-14] MEDS: HEPARIN 5,000 UNIT/0.5 ML VIAL SC (10:10)
[2017-12-14] MEDS: HYDROCODONE/APAP (5/325) TAB PO ×2 (10:24→20:54)
[2017-12-14] MEDS ORDERED: POTASSIUM CHLORIDE 100 ML IVPB (11:30)
[2017-12-14] MEDS: POTASSIUM CHLORIDE 20 MEQ/SW 100 ML IVPB ×4 (12:41→20:53)
[2017-12-14] MEDS: LOSARTAN 25 MG TAB PO (12:41)
[2017-12-14 14:58] LABS: INR 1.15; PROTIME 14.9 Sec (11.9-14.9); PT RATIO 1.2
[2017-12-14 14:59] LABS: PARTIAL THROMBOPLASTIN TIME 35.4 Sec (25.0-35.0)
[2017-12-14] MEDS: FLUCONAZOLE 100 MG/50 ML (PMX) 50 ML IVPB (16:44)
[2017-12-14] MEDS: ATORVASTATIN 40 MG TAB PO (20:54)
[2017-12-14] MEDS: INSULIN GLARGINE [LANTus] (100 UNITS/ML) SYG SC (21:02)
[2017-12-15] MEDS: ACCU-CHEK XX ×2 (01:43→22:36)
[2017-12-15] MEDS: PIPER-TAZO 3.375 GM IV (PMX) 100 ML IVPB ×4 (03:00→21:12)
[2017-12-15] MEDS: PANTOPRAZOLE 40 MG INJ IV (05:04)
[2017-12-15 05:48] LABS: ADD MAN DIFF? NO
[2017-12-15 05:51] LABS: WHITE BLOOD COUNT 16.8 10^3/ul (4.8-10.8)
[2017-12-15 05:51] LABS: BASOPHILS % 0.2 % (0.0-2.0); EOSINOPHILS # 0.2 10^3/ul (0.0-0.5); HEMATOCRIT 29.8 % (37.0-47.0); HEMOGLOBIN 8.7 g/dl (12.0-16.0); LYMPHOCYTES # 2.2 10^3/ul (0.8-2.9); LYMPHOCYTES % 13.2 % (15.0-51.0); MEAN CORPUSCULAR HEMOGLOBIN 20.2 pg (29.0-33.0); MEAN CORPUSCULAR HGB CONC 29.2 g/dl (32.0-37.0); MEAN CORPUSCULAR VOLUME 69.1 fl (82.0-101.0); MONOCYTE # 1.2 10^3/ul (0.3-0.9); MONOCYTES % 6.9 % (0.0-11.0); NEUTROPHIL # 12.6 10^3/ul (1.6-7.5); NEUTROPHILS % 75.3 % (39.0-77.0); PLATELET COUNT 423 10^3/UL (140-415); RED BLOOD COUNT 4.31 10^6/ul (4.20-5.40); RED CELL DISTRIBUTION WIDTH 15.5 % (11.5-14.5)
[2017-12-15 06:25] LABS: ANION GAP 8 (8-16); BLOOD UREA NITROGEN 6 mg/dl (7-20); CALCIUM 7.9 mg/dl (8.4-10.2); CARBON DIOXIDE 38 mmol/L (21-31); CHLORIDE 99 mmol/L (97-110); CREATININE 0.86 mg/dl (0.44-1.00); GLUCOSE 90 mg/dl (70-220); POTASSIUM 3.9 mmol/L (3.5-5.1); SODIUM 141 mmol/L (135-144)
[2017-12-15] MEDS: INSULIN ASPART [NOVOLOG] 3 ML PEN SC ×4 (08:00→21:00)
[2017-12-15] MEDS: DILTIAZEM 30 MG TAB PO ×2 (09:00→21:14)
[2017-12-15] MEDS: HYDROCHLOROTHIAZIDE 25 MG TAB PO ×2 (09:00→16:36)
[2017-12-15] MEDS: ASPIRIN (EC) 81 MG TAB PO (09:00)
[2017-12-15] MEDS: SACCHAROMYCES BOULARDII 250 MG CAP PO ×2 (09:00→21:15)
[2017-12-15] MEDS: LOSARTAN 25 MG TAB PO (09:00)
[2017-12-15] MEDS: METOPROLOL (XL) 100 MG TAB PO ×2 (09:00→21:18)
[2017-12-15] MEDS: LOSARTAN 50 MG TAB PO ×2 (11:00→16:36)
[2017-12-15] MEDS: morphine LIQ (10 MG/5 ML) CUP PO (12:19)
[2017-12-15] MEDS: DIPHENHYDRAMINE 50 MG INJ (12:34)
[2017-12-15] MEDS: DIATR MEGLU/DIATRIZOATE SODIUM 120 ML BTL (12:37)
[2017-12-15] MEDS: LIDOCAINE 100 MG SYRINGE (12:38)
[2017-12-15] MEDS: FENTAnyl 50 MCG/ML VIAL (13:05)
[2017-12-15] MEDS: MIDAZOLAM 1 MG/ML 2 ML INJ (13:05)
[2017-12-15] MEDS: POTASSIUM CHLORIDE (SR) 20 MEQ TAB PO (16:35)
[2017-12-15] MEDS: FLUCONAZOLE 100 MG/50 ML (PMX) 50 ML IVPB (16:35)
[2017-12-15] MEDS: ATORVASTATIN 40 MG TAB PO (21:15)
[2017-12-15] MEDS: HYDROCODONE/APAP (5/325) TAB PO (21:17)
[2017-12-15] MEDS: INSULIN GLARGINE [LANTus] (100 UNITS/ML) SYG SC (21:25)
[2017-12-16] MEDS: PIPER-TAZO 3.375 GM IV (PMX) 100 ML IVPB ×4 (03:07→20:42)
[2017-12-16] MEDS: PANTOPRAZOLE 40 MG INJ IV (06:38)
[2017-12-16 07:07] LABS: ADD MAN DIFF? NO
[2017-12-16 07:13] LABS: WHITE BLOOD COUNT 14.6 10^3/ul (4.8-10.8)
[2017-12-16 07:13] LABS: BASOPHIL # 0.1 10^3/ul (0.0-0.1); BASOPHILS % 0.3 % (0.0-2.0); EOSINOPHILS # 0.2 10^3/ul (0.0-0.5); EOSINOPHILS % 1.5 % (0.0-7.0); HEMATOCRIT 30.6 % (37.0-47.0); LYMPHOCYTES # 1.8 10^3/ul (0.8-2.9); MEAN CORPUSCULAR HEMOGLOBIN 20.5 pg (29.0-33.0); MEAN CORPUSCULAR HGB CONC 29.4 g/dl (32.0-37.0); MEAN CORPUSCULAR VOLUME 69.9 fl (82.0-101.0); MEAN PLATELET VOLUME 9.9 fl (7.4-10.4); MONOCYTES % 6.5 % (0.0-11.0); NEUTROPHIL # 11.1 10^3/ul (1.6-7.5); NEUTROPHILS % 76.3 % (39.0-77.0); PLATELET COUNT 412 10^3/UL (140-415); RED BLOOD COUNT 4.38 10^6/ul (4.20-5.40); RED CELL DISTRIBUTION WIDTH 15.6 % (11.5-14.5)
[2017-12-16 07:32] LABS: PT RATIO 1.2
[2017-12-16 07:36] LABS: ANION GAP 7 (8-16); BLOOD UREA NITROGEN 8 mg/dl (7-20); CARBON DIOXIDE 38 mmol/L (21-31); CHLORIDE 101 mmol/L (97-110); CREATININE 0.92 mg/dl (0.44-1.00); GLUCOSE 81 mg/dl (70-220); POTASSIUM 4.3 mmol/L (3.5-5.1); SODIUM 142 mmol/L (135-144)
[2017-12-16] MEDS: INSULIN ASPART [NOVOLOG] 3 ML PEN SC ×4 (08:00→20:42)
[2017-12-16 08:02] LABS: INR 1.18; PARTIAL THROMBOPLASTIN TIME 30.9 Sec (25.0-35.0); PROTIME 15.2 Sec (11.9-14.9)
[2017-12-16] MEDS: ASPIRIN (EC) 81 MG TAB PO (09:28)
[2017-12-16] MEDS: SACCHAROMYCES BOULARDII 250 MG CAP PO ×2 (09:28→20:37)
[2017-12-16] MEDS: DILTIAZEM 30 MG TAB PO ×2 (09:29→20:42)
[2017-12-16] MEDS: LOSARTAN 50 MG TAB PO (09:29)
[2017-12-16] MEDS: HYDROCHLOROTHIAZIDE 25 MG TAB PO (09:29)
[2017-12-16] MEDS: METOPROLOL (XL) 100 MG TAB PO ×2 (09:30→20:39)
[2017-12-16] MEDS: HEPARIN 5,000 UNIT/0.5 ML VIAL SC ×2 (09:32→20:40)
[2017-12-16] MEDS: FLUCONAZOLE 100 MG/50 ML (PMX) 50 ML IVPB (15:36)
[2017-12-16] MEDS: HYDROCODONE/APAP (5/325) TAB PO ×2 (15:44→22:58)
[2017-12-16] MEDS: ATORVASTATIN 40 MG TAB PO (20:39)
[2017-12-16] MEDS: INSULIN GLARGINE [LANTus] (100 UNITS/ML) SYG SC ×2 (20:48→21:51)
[2017-12-17] MEDS: ACCU-CHEK XX (01:30)
[2017-12-17] MEDS: PIPER-TAZO 3.375 GM IV (PMX) 100 ML IVPB ×4 (02:53→20:56)
[2017-12-17] MEDS: PANTOPRAZOLE 40 MG INJ IV (05:17)
[2017-12-17] MEDS: HYDROCODONE/APAP (5/325) TAB PO ×3 (05:17→20:58)
[2017-12-17 06:01] LABS: ADD MAN DIFF? NO
[2017-12-17 06:04] LABS: BASOPHILS % 0.2 % (0.0-2.0); EOSINOPHILS # 0.2 10^3/ul (0.0-0.5); EOSINOPHILS % 1.6 % (0.0-7.0); HEMATOCRIT 30.4 % (37.0-47.0); LYMPHOCYTES # 1.7 10^3/ul (0.8-2.9); LYMPHOCYTES % 12.9 % (15.0-51.0); MEAN CORPUSCULAR HEMOGLOBIN 20.4 pg (29.0-33.0); MEAN CORPUSCULAR HGB CONC 29.6 g/dl (32.0-37.0); MEAN CORPUSCULAR VOLUME 68.8 fl (82.0-101.0); MEAN PLATELET VOLUME 9.8 fl (7.4-10.4); MONOCYTE # 0.9 10^3/ul (0.3-0.9); NEUTROPHIL # 10.2 10^3/ul (1.6-7.5); NEUTROPHILS % 76.2 % (39.0-77.0); PLATELET COUNT 420 10^3/UL (140-415); RED BLOOD COUNT 4.42 10^6/ul (4.20-5.40); RED CELL DISTRIBUTION WIDTH 15.8 % (11.5-14.5)
[2017-12-17 06:04] LABS: WHITE BLOOD COUNT 13.3 10^3/ul (4.8-10.8)
[2017-12-17] MEDS: INSULIN ASPART [NOVOLOG] 3 ML PEN SC ×4 (08:00→20:58)
[2017-12-17] MEDS: HEPARIN 5,000 UNIT/0.5 ML VIAL SC ×2 (09:00→21:06)
[2017-12-17] MEDS: LOSARTAN 50 MG TAB PO ×2 (09:00→15:03)
[2017-12-17] MEDS: SACCHAROMYCES BOULARDII 250 MG CAP PO ×3 (09:00→20:58)
[2017-12-17] MEDS: METOPROLOL (XL) 100 MG TAB PO ×3 (09:00→20:57)
[2017-12-17] MEDS: ASPIRIN (EC) 81 MG TAB PO (09:00)
[2017-12-17] MEDS: HYDROCHLOROTHIAZIDE 25 MG TAB PO ×2 (09:00→15:01)
[2017-12-17] MEDS: DILTIAZEM 30 MG TAB PO ×2 (09:00→20:57)
[2017-12-17] MEDS: IOHEXOL 300MG/ML 150 ML BTL (10:06)
[2017-12-17] MEDS: SOD CHLORIDE 0.9% 100 ML (10:06)
[2017-12-17] MEDS: GLUCOSE GEL 15 GRAM TUBE BUCCAL ×2 (13:38→14:11)
[2017-12-17] MEDS: FLUCONAZOLE 100 MG/50 ML (PMX) 50 ML IVPB (16:17)
[2017-12-17] MEDS: INSULIN GLARGINE [LANTus] (100 UNITS/ML) SYG SC (20:58)
[2017-12-17] MEDS: ATORVASTATIN 40 MG TAB PO (20:58)
[2017-12-18] MEDS: ACCU-CHEK XX (01:26)
[2017-12-18] MEDS: PIPER-TAZO 3.375 GM IV (PMX) 100 ML IVPB ×4 (02:53→20:43)
[2017-12-18] MEDS: PANTOPRAZOLE 40 MG INJ IV (05:43)
[2017-12-18 05:50] LABS: ADD MAN DIFF? NO
[2017-12-18 05:54] LABS: BASOPHIL # 0.1 10^3/ul (0.0-0.1); BASOPHILS % 0.4 % (0.0-2.0); EOSINOPHILS # 0.2 10^3/ul (0.0-0.5); EOSINOPHILS % 1.6 % (0.0-7.0); HEMATOCRIT 34.2 % (37.0-47.0); LYMPHOCYTES # 1.4 10^3/ul (0.8-2.9); LYMPHOCYTES % 12.6 % (15.0-51.0); MEAN CORPUSCULAR HEMOGLOBIN 20.2 pg (29.0-33.0); MEAN CORPUSCULAR HGB CONC 29.2 g/dl (32.0-37.0); MEAN PLATELET VOLUME 9.8 fl (7.4-10.4); MONOCYTE # 0.8 10^3/ul (0.3-0.9); MONOCYTES % 6.9 % (0.0-11.0); NEUTROPHIL # 8.8 10^3/ul (1.6-7.5); NEUTROPHILS % 76.7 % (39.0-77.0); PLATELET COUNT 489 10^3/UL (140-415); RED BLOOD COUNT 4.96 10^6/ul (4.20-5.40); RED CELL DISTRIBUTION WIDTH 15.9 % (11.5-14.5)
[2017-12-18 05:54] LABS: WHITE BLOOD COUNT 11.5 10^3/ul (4.8-10.8)
[2017-12-18] MEDS: INSULIN ASPART [NOVOLOG] 3 ML PEN SC ×4 (08:00→20:46)
[2017-12-18] MEDS: METOPROLOL (XL) 100 MG TAB PO ×2 (08:24→20:44)
[2017-12-18] MEDS: ASPIRIN (EC) 81 MG TAB PO (08:24)
[2017-12-18] MEDS: HYDROCHLOROTHIAZIDE 25 MG TAB PO (08:24)
[2017-12-18] MEDS: SACCHAROMYCES BOULARDII 250 MG CAP PO ×2 (08:24→20:43)
[2017-12-18] MEDS: LOSARTAN 50 MG TAB PO (08:25)
[2017-12-18] MEDS: HEPARIN 5,000 UNIT/0.5 ML VIAL SC ×2 (08:26→20:53)
[2017-12-18] MEDS: DILTIAZEM 30 MG TAB PO ×2 (08:26→20:45)
[2017-12-18] MEDS: HYDROCODONE/APAP (5/325) TAB PO (09:33)
[2017-12-18] MEDS: FLUCONAZOLE 100 MG/50 ML (PMX) 50 ML IVPB (16:54)
[2017-12-18] MEDS: ATORVASTATIN 40 MG TAB PO (20:43)
[2017-12-18] MEDS: INSULIN GLARGINE [LANTus] (100 UNITS/ML) SYG SC (20:55)
[2017-12-19] MEDS: ACCU-CHEK XX (01:43)
[2017-12-19] MEDS: PIPER-TAZO 3.375 GM IV (PMX) 100 ML IVPB ×2 (03:47→08:42)
[2017-12-19] MEDS: HYDROCODONE/APAP (5/325) TAB PO (04:12)
[2017-12-19] MEDS: PANTOPRAZOLE 40 MG INJ IV (05:37)
[2017-12-19] MEDS: INSULIN ASPART [NOVOLOG] 3 ML PEN SC ×4 (08:00→21:00)
[2017-12-19] MEDS: HEPARIN 5,000 UNIT/0.5 ML VIAL SC ×2 (08:40→21:56)
[2017-12-19] MEDS: ASPIRIN (EC) 81 MG TAB PO (08:40)
[2017-12-19] MEDS: HYDROCHLOROTHIAZIDE 25 MG TAB PO (08:40)
[2017-12-19] MEDS: SACCHAROMYCES BOULARDII 250 MG CAP PO ×2 (08:41→22:00)
[2017-12-19] MEDS: DILTIAZEM 30 MG TAB PO ×2 (08:41→21:53)
[2017-12-19] MEDS: METOPROLOL (XL) 100 MG TAB PO ×2 (08:41→21:53)
[2017-12-19] MEDS: LOSARTAN 50 MG TAB PO (08:42)
[2017-12-19 08:50] LABS: ADD MAN DIFF? NO
[2017-12-19 08:57] LABS: WHITE BLOOD COUNT 9.4 10^3/ul (4.8-10.8)
[2017-12-19 08:57] LABS: BASOPHILS % 0.4 % (0.0-2.0); EOSINOPHILS # 0.2 10^3/ul (0.0-0.5); EOSINOPHILS % 1.6 % (0.0-7.0); HEMATOCRIT 30.5 % (37.0-47.0); LYMPHOCYTES # 1.5 10^3/ul (0.8-2.9); LYMPHOCYTES % 15.5 % (15.0-51.0); MEAN CORPUSCULAR HEMOGLOBIN 20.3 pg (29.0-33.0); MEAN CORPUSCULAR HGB CONC 29.5 g/dl (32.0-37.0); MEAN CORPUSCULAR VOLUME 68.8 fl (82.0-101.0); MONOCYTE # 0.8 10^3/ul (0.3-0.9); MONOCYTES % 8.1 % (0.0-11.0); NEUTROPHIL # 6.8 10^3/ul (1.6-7.5); NEUTROPHILS % 73.2 % (39.0-77.0); PLATELET COUNT 425 10^3/UL (140-415); RED BLOOD COUNT 4.43 10^6/ul (4.20-5.40); RED CELL DISTRIBUTION WIDTH 15.8 % (11.5-14.5)
[2017-12-19] MEDS: ERTAPENEM SODIUM 1 GM in SOD CHLORIDE 0.9% 100 ML IVPB (11:42)
[2017-12-19] MEDS: ATORVASTATIN 40 MG TAB PO (21:54)
[2017-12-19] MEDS: INSULIN GLARGINE [LANTus] (100 UNITS/ML) SYG SC (21:56)
[2017-12-20] MEDS: HYDROCODONE/APAP (5/325) TAB PO ×2 (01:41→20:57)
[2017-12-20] MEDS: ACCU-CHEK XX (01:41)
[2017-12-20] MEDS: PANTOPRAZOLE 40 MG INJ IV (05:21)
[2017-12-20 06:02] LABS: ADD MAN DIFF? NO
[2017-12-20 06:07] LABS: BASOPHILS % 0.4 % (0.0-2.0); EOSINOPHILS # 0.2 10^3/ul (0.0-0.5); EOSINOPHILS % 1.7 % (0.0-7.0); HEMOGLOBIN 9.4 g/dl (12.0-16.0); LYMPHOCYTES % 19.7 % (15.0-51.0); MEAN CORPUSCULAR HEMOGLOBIN 20.2 pg (29.0-33.0); MEAN CORPUSCULAR HGB CONC 29.4 g/dl (32.0-37.0); MEAN CORPUSCULAR VOLUME 68.7 fl (82.0-101.0); MEAN PLATELET VOLUME 9.5 fl (7.4-10.4); MONOCYTE # 0.9 10^3/ul (0.3-0.9); MONOCYTES % 8.8 % (0.0-11.0); NEUTROPHIL # 6.8 10^3/ul (1.6-7.5); NEUTROPHILS % 68.5 % (39.0-77.0); PLATELET COUNT 435 10^3/UL (140-415); RED BLOOD COUNT 4.66 10^6/ul (4.20-5.40); RED CELL DISTRIBUTION WIDTH 15.9 % (11.5-14.5)
[2017-12-20 06:07] LABS: WHITE BLOOD COUNT 9.9 10^3/ul (4.8-10.8)
[2017-12-20] MEDS: INSULIN ASPART [NOVOLOG] 3 ML PEN SC ×4 (08:00→20:52)
[2017-12-20] MEDS: SACCHAROMYCES BOULARDII 250 MG CAP PO ×2 (08:55→20:47)
[2017-12-20] MEDS: ASPIRIN (EC) 81 MG TAB PO (08:55)
[2017-12-20] MEDS: HYDROCHLOROTHIAZIDE 25 MG TAB PO (08:56)
[2017-12-20] MEDS: LOSARTAN 50 MG TAB PO (08:56)
[2017-12-20] MEDS: DILTIAZEM 30 MG TAB PO ×2 (08:58→20:48)
[2017-12-20] MEDS: METOPROLOL (XL) 100 MG TAB PO ×2 (08:59→20:48)
[2017-12-20] MEDS: HEPARIN 5,000 UNIT/0.5 ML VIAL SC ×2 (09:39→20:46)
[2017-12-20] MEDS: ERTAPENEM SODIUM 1 GM in SOD CHLORIDE 0.9% 100 ML IVPB (12:04)
[2017-12-20] MEDS: ATORVASTATIN 40 MG TAB PO (20:49)
[2017-12-20] MEDS: INSULIN GLARGINE [LANTus] (100 UNITS/ML) SYG SC (20:56)
[2017-12-21] MEDS: ACCU-CHEK XX (01:18)
[2017-12-21] MEDS: PANTOPRAZOLE 40 MG INJ IV (05:29)
[2017-12-21] MEDS: INSULIN ASPART [NOVOLOG] 3 ML PEN SC ×4 (08:00→21:00)
[2017-12-21] MEDS: FENTAnyl 50 MCG/ML VIAL (08:37)
[2017-12-21] MEDS: MIDAZOLAM 1 MG/ML 2 ML INJ (08:37)
[2017-12-21] MEDS: SOD CHLORIDE 0.9% 500 ML (08:37)
[2017-12-21] MEDS: LIDOCAINE 1% (MPF) 5 ML VIAL (08:38)
[2017-12-21] MEDS: METOPROLOL (XL) 100 MG TAB PO ×2 (08:40→21:07)
[2017-12-21] MEDS: LOSARTAN 50 MG TAB PO (08:40)
[2017-12-21] MEDS: SACCHAROMYCES BOULARDII 250 MG CAP PO ×2 (08:41→21:07)
[2017-12-21] MEDS: DILTIAZEM 30 MG TAB PO ×2 (08:41→21:08)
[2017-12-21] MEDS: HYDROCHLOROTHIAZIDE 25 MG TAB PO (08:41)
[2017-12-21] MEDS: ASPIRIN (EC) 81 MG TAB PO (08:41)
[2017-12-21] MEDS: HEPARIN 5,000 UNIT/0.5 ML VIAL SC ×2 (08:46→21:14)
[2017-12-21] MEDS: ERTAPENEM SODIUM 1 GM in SOD CHLORIDE 0.9% 100 ML IVPB (11:00)
[2017-12-21] MEDS: IOHEXOL 14.3 MG(I)/ML (ADULT) BTL PO (16:59)
[2017-12-21] MEDS ORDERED: IOHEXOL 300MG/ML 150 ML BTL (20:11)
[2017-12-21] MEDS ORDERED: SOD CHLORIDE 0.9% 100 ML (20:11)
[2017-12-21] MEDS: ATORVASTATIN 40 MG TAB PO (21:08)
[2017-12-21] MEDS: INSULIN GLARGINE [LANTus] (100 UNITS/ML) SYG SC (21:13)
[2017-12-21] MEDS: HYDROCODONE/APAP (5/325) TAB PO (23:31)
[2017-12-22] MEDS: ACCU-CHEK XX (02:00)
[2017-12-22] MEDS: PANTOPRAZOLE 40 MG INJ IV (05:35)
[2017-12-22] MEDS: INSULIN ASPART [NOVOLOG] 3 ML PEN SC ×4 (08:00→21:00)
[2017-12-22] MEDS: SACCHAROMYCES BOULARDII 250 MG CAP PO ×2 (08:16→21:56)
[2017-12-22] MEDS: ASPIRIN (EC) 81 MG TAB PO (08:16)
[2017-12-22] MEDS: METOPROLOL (XL) 100 MG TAB PO ×2 (08:17→21:55)
[2017-12-22] MEDS: HYDROCHLOROTHIAZIDE 25 MG TAB PO (08:17)
[2017-12-22] MEDS: DILTIAZEM 30 MG TAB PO ×2 (08:18→21:55)
[2017-12-22] MEDS: LOSARTAN 50 MG TAB PO (08:18)
[2017-12-22] MEDS: HEPARIN 5,000 UNIT/0.5 ML VIAL SC (08:24)
[2017-12-22] MEDS: HYDROCODONE/APAP (5/325) TAB PO ×2 (10:00→23:37)
[2017-12-22] MEDS: ERTAPENEM SODIUM 1 GM in SOD CHLORIDE 0.9% 100 ML IVPB (10:23)
[2017-12-22] MEDS: ATORVASTATIN 40 MG TAB PO (21:55)
[2017-12-22] MEDS: INSULIN GLARGINE [LANTus] (100 UNITS/ML) SYG SC (22:03)
[2017-12-23] MEDS: ACCU-CHEK XX (02:00)
[2017-12-23] MEDS: DEXTROSE 5%-0.45% NACL 1,000 ML IV (07:02)
[2017-12-23] MEDS: PANTOPRAZOLE 40 MG INJ IV (07:02)
[2017-12-23] MEDS: HYDROCHLOROTHIAZIDE 25 MG TAB PO (08:42)
[2017-12-23] MEDS: ASPIRIN (EC) 81 MG TAB PO (08:42)
[2017-12-23] MEDS: SACCHAROMYCES BOULARDII 250 MG CAP PO ×2 (08:42→20:35)
[2017-12-23] MEDS: LOSARTAN 50 MG TAB PO (08:43)
[2017-12-23] MEDS: METOPROLOL (XL) 100 MG TAB PO ×2 (08:44→20:38)
[2017-12-23] MEDS: DILTIAZEM 30 MG TAB PO ×2 (08:49→20:36)
[2017-12-23] MEDS: INSULIN ASPART [NOVOLOG] 3 ML PEN SC ×4 (08:49→20:40)
[2017-12-23] MEDS: ERTAPENEM SODIUM 1 GM in SOD CHLORIDE 0.9% 100 ML IVPB (11:09)
[2017-12-23] MEDS: ATORVASTATIN 40 MG TAB PO (20:36)
[2017-12-23] MEDS: INSULIN GLARGINE [LANTus] (100 UNITS/ML) SYG SC (20:41)
[2017-12-23] MEDS: DOCUSATE SODIUM 100 MG CAP PO (20:47)
[2017-12-24] MEDS: ACCU-CHEK XX (02:00)
[2017-12-24] MEDS: PANTOPRAZOLE 40 MG INJ IV (06:59)
[2017-12-24] MEDS: HYDROCHLOROTHIAZIDE 25 MG TAB PO (08:50)
[2017-12-24] MEDS: ASPIRIN (EC) 81 MG TAB PO (08:51)
[2017-12-24] MEDS: SACCHAROMYCES BOULARDII 250 MG CAP PO ×2 (08:51→20:28)
[2017-12-24] MEDS: DILTIAZEM 30 MG TAB PO ×2 (08:51→20:28)
[2017-12-24] MEDS: LOSARTAN 50 MG TAB PO (08:52)
[2017-12-24] MEDS: METOPROLOL (XL) 100 MG TAB PO ×2 (08:52→20:27)
[2017-12-24] MEDS: INSULIN ASPART [NOVOLOG] 3 ML PEN SC ×4 (09:00→20:31)
[2017-12-24] MEDS: HEPARIN 5,000 UNIT/0.5 ML VIAL SC ×2 (09:00→20:33)
[2017-12-24] MEDS: ERTAPENEM SODIUM 1 GM in SOD CHLORIDE 0.9% 100 ML IVPB (12:06)
[2017-12-24] MEDS: ATORVASTATIN 40 MG TAB PO (20:28)
[2017-12-24] MEDS: INSULIN GLARGINE [LANTus] (100 UNITS/ML) SYG SC (20:32)
[2017-12-25] MEDS: ACCU-CHEK XX (02:15)
[2017-12-25] MEDS: PANTOPRAZOLE 40 MG INJ IV (07:00)
[2017-12-25] MEDS: ASPIRIN (EC) 81 MG TAB PO (08:45)
[2017-12-25] MEDS: HYDROCHLOROTHIAZIDE 25 MG TAB PO (08:45)
[2017-12-25] MEDS: LOSARTAN 50 MG TAB PO (08:45)
[2017-12-25] MEDS: SACCHAROMYCES BOULARDII 250 MG CAP PO ×2 (08:47→20:41)
[2017-12-25] MEDS: METOPROLOL (XL) 100 MG TAB PO ×2 (08:48→20:42)
[2017-12-25] MEDS: DILTIAZEM 30 MG TAB PO ×2 (08:48→20:41)
[2017-12-25] MEDS: HEPARIN 5,000 UNIT/0.5 ML VIAL SC ×2 (08:55→20:38)
[2017-12-25] MEDS: INSULIN ASPART [NOVOLOG] 3 ML PEN SC ×4 (08:55→20:41)
[2017-12-25] MEDS: ERTAPENEM SODIUM 1 GM in SOD CHLORIDE 0.9% 100 ML IVPB (12:46)
[2017-12-25] MEDS: INSULIN GLARGINE [LANTus] (100 UNITS/ML) SYG SC (20:40)
[2017-12-25] MEDS: ATORVASTATIN 40 MG TAB PO (20:42)
[2017-12-25] MEDS: LORAZEPAM 2 MG INJ IV (20:47)
[2017-12-26] MEDS: ACCU-CHEK XX (01:53)
[2017-12-26] MEDS: PANTOPRAZOLE 40 MG INJ IV (06:23)
[2017-12-26] MEDS: INSULIN ASPART [NOVOLOG] 3 ML PEN SC ×2 (08:00→13:03)
[2017-12-26] MEDS: DILTIAZEM 30 MG TAB PO (08:57)
[2017-12-26] MEDS: SACCHAROMYCES BOULARDII 250 MG CAP PO (08:58)
[2017-12-26] MEDS: LOSARTAN 50 MG TAB PO (08:58)
[2017-12-26] MEDS: HYDROCHLOROTHIAZIDE 25 MG TAB PO (08:58)
[2017-12-26] MEDS: ASPIRIN (EC) 81 MG TAB PO (08:58)
[2017-12-26] MEDS: METOPROLOL (XL) 100 MG TAB PO (08:58)
[2017-12-26] MEDS: HEPARIN 5,000 UNIT/0.5 ML VIAL SC (09:00)
[2017-12-26] MEDS: ERTAPENEM SODIUM 1 GM in SOD CHLORIDE 0.9% 100 ML IVPB (11:35)
== END 2017-12-26 15:55 | disposition home health service (06) | DRG 872 ==
LOC: E/R 12:03 → 2NE 12-06 14:06
PROC: 02HV33Z Insertion of Infusion Device into Superior Vena Cava, Percutaneous Approach (ICD-10-PCS; 2017-12-11)
PROC: 0W9J30Z Drainage of Pelvic Cavity with Drainage Device, Percutaneous Approach (ICD-10-PCS; principal; 2017-12-17)
DX: A41.9 Sepsis, unspecified organism (principal); Z68.43 Body mass index [BMI] 50.0-59.9, adult; K57.20 Diverticulitis of large intestine with perforation and abscess without bleeding; E66.01 Morbid (severe) obesity due to excess calories; I10 Essential (primary) hypertension; E11.9 Type 2 diabetes mellitus without complications; E78.5 Hyperlipidemia, unspecified; D50.9 Iron deficiency anemia, unspecified; R65.20 Severe sepsis without septic shock; B96.20 Unspecified Escherichia coli [E. coli] as the cause of diseases classified elsewhere; E87.6 Hypokalemia; K76.0 Fatty (change of) liver, not elsewhere classified; K80.20 Calculus of gallbladder without cholecystitis without obstruction; Z53.8 Procedure and treatment not carried out for other reasons; Z79.4 Long term (current) use of insulin; Z16.24 Resistance to multiple antibiotics
CPT/HCPCS: 36569; 36589; 71045; 74176; 74177; 74178; 76937; 77012; 80048; 80053; 80061; 80202; 81001; 81003; 82150; 82270; 82728; 82962; 83036; 83540; 83605; 83690; 83735; 84100; 84439; 84443; 84484; 85025; 85610; 85651; 85730; 86140; 87040; 87045; 87070; 87075; 87086; 93005; 96361; 96374; 96375; 96376; 99285-25; G0378